=== PATIENT | female | born 1975 | race Caucasian/White ===

== ENCOUNTER 2017-06-25 15:49 | Emergency (ER) | payer BC, MEDICAID ==
[2017-06-25 16:13] VITALS: BP 195/102
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
[2017-06-25] MEDS ORDERED: HYDROmorphone 1 MG/ML Syringe IVPUSH ONE ×2 (16:21→19:32)
[2017-06-25] MEDS ORDERED: Metoclopramide 10 MG/2 ML SDV IVPUSH ONE (16:21)
[2017-06-25] MEDS ORDERED: Dextrose 5%-0.9% NaCl 1,000 ML IV SCH (16:30)
--- NOTE | 2017-06-25 17:15 | US ---
Limited abdominal ultrasound: Multiple real-time images of the upper right abdomen were obtained. Comparison: No previous study. Liver shows no focal parenchymal abnormality. Right kidney shows no hydronephrosis or mass and has a length of 10.0 cm. Gallbladder contains no gallstones. No gallbladder wall thickening or biliary duct dilatation is seen. Inferior vena cava is patent. Portal vein shows normal hepatopedal flow. Visualized pancreas appears within normal limits. Impression: 1. No abnormality is identified on right upper quadrant abdominal ultrasound. Diagnostic code #1
[2017-06-25] MEDS ORDERED: Ondansetron 4 MG/2 ML SDV IVPUSH ONE (19:32)
[2017-06-25] MEDS ORDERED: fentaNYL 100 MCG/2 ML SDV IVPUSH ONE (19:40)
[2017-06-25] MEDS ORDERED: Potassium Chloride 10 MEQ in Premix Bag 1 BAG IV SCH (19:45)
[2017-06-25] MEDS ORDERED: Iopamidol 612 MG/ML 150 ML Bottle IVPUSH ONE (20:12)
[2017-06-25] MEDS ORDERED: Diatrizoate Meglumine/Diatrizoate Sodium 37% 120 ML Bottle PO ONE (20:12)
[2017-06-25] MEDS ORDERED: Sodium Chloride 0.9% 10 ML Syringe FLUSH PRN (20:13)
--- NOTE | 2017-06-25 20:56 | CT ---
CT abdomen and pelvis Technique: Multiple axial sections were obtained from above the dome of the diaphragm inferiorly to the pubic symphysis. Intravenous and oral contrast was utilized. Delayed images were also obtained through the bladder. Comparison: Prior right upper quadrant abdominal ultrasound performed on the same day (4:31 PM). Findings: Visualized lung bases shows nothing acute. Liver shows no focal parenchymal abnormality. Spleen appears within normal limits. Adrenal glands show no nodule. Pancreas is within normal limits. Gallbladder contains no calcified gallstones. Kidneys show symmetric contrast enhancement without hydronephrosis or mass. Abdominal aorta shows no aneurysmal dilatation. No retroperitoneal adenopathy or mesenteric abnormalities are seen. No pelvic mass or adenopathy is seen. Delayed images shows contrast within the distal ureters. Small amount of free fluid is seen within the cul-de-sac which is most likely physiologic. Appendix is seen which appears normal in size. No bowel dilatation is seen. No inflammatory change is seen. Slight bowel wall thickening is seen within the stomach antrum which can be normal variant but also be seen with antritis. Bone window settings were reviewed which appear within normal limits for the patient's age. Impression: 1. Questionable findings within the stomach antrum as noted above. 2. Nothing acute is otherwise seen on CT study of the abdomen and pelvis. Diagnostic code #2
[2017-06-25] MEDS ORDERED: Dicyclomine 10 MG Cap PO ONE (21:22)
[2017-06-25] MEDS ORDERED: Famotidine 20 MG Tab PO ONE (21:22)
--- NOTE | 2017-06-26 06:39 | CR ---
Abdomen: Supine view of the abdomen was obtained. Comparison: No prior study. Bowel gas pattern is normal. No abnormal calcifications or soft tissue abnormality is seen. Bony structures are unremarkable. Impression: 1. Unremarkable supine abdominal x-ray. Diagnostic code #1
== END 2017-06-25 21:45 | disposition home or self-care (01) ==
LOC: JD.ED 15:49
DX: K29.70 Gastritis, unspecified, without bleeding (principal); K52.9 Noninfective gastroenteritis and colitis, unspecified; F17.210 Nicotine dependence, cigarettes, uncomplicated; Z88.5 Allergy status to narcotic agent; Z88.0 Allergy status to penicillin; Z88.2 Allergy status to sulfonamides; Z79.899 Other long term (current) drug therapy
CPT/HCPCS: 36415; 74018; 74177; 76705; 80053; 81001; 81025; 82009; 83605; 83690; 85025; 86140; 86677; 96361; 96365; 96366; 96375; 99285; A9270; J1170; J2405; J2765; J3010; J3480; J7042; J7050; Q9963; Q9967; 99284

== ENCOUNTER 2018-01-29 07:45 | Day surgery (SDC) | payer BC ==
[~2018-01-29 07:45] MED LIST: Dexamethasone 4 MG/ML SDV ONE; HYDROmorphone 0.5 MG/0.5 ML Syringe ONE; Ketorolac 30 MG/ML SDV ONE; Lactated Ringers 1,000 ML IV SCH; Lactated Ringers 1,000 ML ONE; Lidocaine 1% 4 ML ONE; Lidocaine 1%/Sod Bicarbonate in NS 8.4% 1 ML Syringe IDERM PRN; Midazolam 1 MG/ML 2 ML SDV ONE; Ondansetron 4 MG/2 ML SDV ONE; Propofol 200 MG/20 ML SDV ONE; Rocuronium 50 MG/5 ML Vial ONE; Sodium Chloride 0.9% 10 ML Syringe FLUSH PRN; ceFAZolin 1 GM Vial ONE; fentaNYL 250 MCG/5 ML SDV ONE
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
[2018-01-29] MEDS ORDERED: Bupivacaine 0.5% 30 ML SDV ONE (09:46)
[2018-01-29] MEDS ORDERED: HYDROmorphone 0.5 MG/0.5 ML Syringe IVPUSH PRN (10:33)
[2018-01-29] MEDS ORDERED: fentaNYL 100 MCG/2 ML SDV IVPUSH PRN (10:33)
[2018-01-29] MEDS ORDERED: diphenhydrAMINE 50 MG/ML SDV IVPUSH PRN (10:33)
[2018-01-29] MEDS ORDERED: Ondansetron 4 MG/2 ML SDV IVPUSH PRN (10:33)
[2018-01-29] MEDS ORDERED: ePHEDrine 50 MG/ML SDV IVPUSH PRN (10:33)
[2018-01-29] MEDS ORDERED: Albuterol 0.083% 2.5 MG/3 ML Neb Soln NEB PRN (10:33)
[2018-01-29] MEDS: Sodium Chloride 0.9% 50 ML SDV ONE ×2 (10:35→10:54)
[2018-01-29] MEDS: Lidocaine 1% with EPINEPHrine 1:100,000 20 ML MDV ONE ×2 (10:35→10:54)
[2018-01-29] MEDS ORDERED: Phenylephrine 1 MG in Sodium Chloride 0.9% 10 ML IV SCH (10:45)
[2018-01-29] MEDS ORDERED: HYDROmorphone 0.5 MG/0.5 ML Syringe ONE (10:46)
[2018-01-29] MEDS ORDERED: Lactated Ringers 1,000 ML ONE (11:13)
--- NOTE | 2018-01-29 11:41 | PCM.POSTAN ---
POST ANESTHESIA ASSESSMENT - MENTAL STATUS Mental Status: Alert - VITAL SIGNS Pulse Rate: 85 SaO2: 100 Resp Rate: 15 Blood Pressure: 165/91 Temperature: 36.1 C - RESPIRATORY Respiratory Status: Respiratory Rate WNL, Airway Patent, O2 Saturation Stable, Supplemental Oxygen - CARDIOVASCULAR CV Status: Pulse Rate WNL, Blood Pressure Stable - GASTROINTESTINAL GI Status: No Symptoms - POST OP HYDRATION Hydration Status: Adequate & Stable
--- NOTE | 2018-01-29 11:55 | PCM.OPNOTE ---
- General Post-Op/Procedure Note Date of Surgery/Procedure: 01/29/18 Operative Procedure(s): Transvaginal hysterectomy with bilateral salpingectomy Findings: Normal appearing cervix, uterus and bilateral fallopian tubes. Ovaries overall normal-appearing and limited portion of bowel that was visualized was normal in appearance. Pre Op Diagnosis: Abnormal uterine bleeding with irregular menstrual cycle and polymenorrhea and dysmenorrhea Post-Op Diagnosis: Same with endometrial polyp Anesthesia Technique: General ET Tube Primary Surgeon: Jeremias Kothari Anesthesia Provider: Juliann Grove Yield Analyst: Dimitri Taylor Yield Analyst: Lisset Mc Reason Yield Analyst Was Necessary: Patient's safety and reduction of morbidity and mortality Role of Yield Analyst: Retraction for visualization of tissue during surgery Fluid Replacement, Intraop: 2,000 Output, Urine Amount: 50 EBL in mLs: 200 Complications: None Condition: Good Free Text/Narrative:: Procedure in detail: The patient was seen in the preoperative holding area and risks, benefits, indications, and alternatives of the procedure were reviewed with the patient and she desired to proceed with a total vaginal hysterectomy. Consents were signed. The patient was given general anesthesia with an endotracheal tube that was placed without difficulty. The patient was placed in dorsal lithotomy position , prepped, and draped in normal sterile fashion. A weighted speculum was placed into the vagina and the anterior lip of the cervix was grasped with the single-tooth tenaculum. A second single-tooth tenaculum was used to grasp the entirety of the cervix. The cervix was injected circumferentially with 0.25% lidocaine with epinephrine. The cervix was circumferentially incised with a scalpel. The bladder was dissected off the pubovesical cervical fascia anteriorly with Esquivel scissors. The posterior cul-de-sac was entered sharply without difficulty using Esquivel scissors. A LigaSure vessel sealing device was placed over the uterosacral ligaments on the patient's left side. The anterior cul-de-sac was then able to be entered using sharp dissection with Esquivel scissors. These were cauterized and ligated with the LigaSure vessel sealing device. This was repeated on the patient's right side. Hemostasis was assured. The cardinal ligaments were then clamped on both sides with LigaSure vessel sealing device, cauterized and ligated with the device. The uterine arteries and broad ligament were then serially clamped with LigaSure vessel sealing device, cauterized and ligated with the device] on both sides. There was noted to be bleeding from the patient's left uterine artery and this was clamped with a Matthew clamp and sealed using cautery with the LigaSure vessel sealing device. There is an additional vessel that was bleeding on the left side and this was again clamped with a Matthew clamp and ligated using 0 Monocryl. Excellent hemostasis was visualized at this time. The cornua were clamped bilaterally with LigaSure vessel sealing device, cauterized and ligated , and the uterus delivered. These pedicles were suture ligated using LigaSure vessel sealing device with excellent hemostasis. The left fallopian tube was then visualized and grasped using a Priscilla clamp and excised using LigaSure vessel sealing device. This was repeated on the right side with grasping of the fallopian tube with a Priscilla clamp and excised using LigaSure vessel sealing device. The posterior vaginal cuff was closed with running locked sutures of 0-Monocryl. The vaginal cuff was closed with running locked stitches in a horizontal fashion with 0-Monocryl. All instruments were removed from the vagina. The patient was awoken and taken to the PACU for recovery in stable condition. Sponge, lap, needle, and instrument counts were correct x 2.
[2018-01-29] MEDS ORDERED: Acetaminophen/oxyCODONE 325-5 MG Tab PO PRN (12:00)
--- NOTE | 2018-01-29 13:15 | PCM48HPAN ---
Post Anesthesia Note - EVALUATION WITHIN 48HRS OF ANESTHETIC Vital Signs in Normal Range: Yes Patient Participated in Evaluation: Yes Respiratory Function Stable: Yes Airway Patent: Yes Cardiovascular Function Stable: Yes Hydration Status Stable: Yes Pain Control Satisfactory: Yes Nausea and Vomiting Control Satisfactory: Yes Mental Status Recovered: Yes
[2018-01-29 14:02] VITALS: BP 155/73
== END 2018-01-29 14:40 | disposition home or self-care (01) ==
LOC: JD.SDS 07:45
PROVIDERS: ATTEND Obstetrics & Gynecology
DX: D25.9 Leiomyoma of uterus, unspecified (principal); N87.9 Dysplasia of cervix uteri, unspecified; N84.0 Polyp of corpus uteri; N80.0 Endometriosis of uterus; N94.89 Other specified conditions associated with female genital organs and menstrual cycle; I10 Essential (primary) hypertension; F17.210 Nicotine dependence, cigarettes, uncomplicated; F41.9 Anxiety disorder, unspecified; F32.9 Major depressive disorder, single episode, unspecified; Z79.899 Other long term (current) drug therapy; Z88.2 Allergy status to sulfonamides; Z88.0 Allergy status to penicillin
CPT/HCPCS: 36415; 58262; 80053; 81003; 81025; 85025; 86850; 86900; 86901; A9270; J0690; J1100; J1170; J1885; J2250; J2405; J2704; J3010; J7120; J2001; J3490

== ENCOUNTER 2023-01-09 10:03 | Emergency (ER) | payer BC ==
[2023-01-09] MEDS ORDERED: Sodium Chloride 0.9% 10 ML Syringe FLUSH PRN (10:48)
[2023-01-09 11:01] LABS: BASOPHILS ABSOLUTE AUTO 0.04 K/mm3 (0.01-0.08); BASOPHILS PERCENT AUTO 0.4 % (0.1-1.2); EOSINOPHILS ABSOLUTE AUTO 0.06 K/mm3 (0.04-0.36); EOSINOPHILS PERCENT AUTO 0.6 (0.7-5.8); HEMATOCRIT 41.4 % (34.1-44.9); HEMOGLOBIN 14.4 gm/dl (11.2-15.7); IMMATURE GRAN ABSOLUTE AUTO 0.02 K/mm3 (0.00-0.10); IMMATURE GRAN PERCENT AUTO 0.2 % (<=1.0); LYMPHOCYTES ABSOLUTE AUTO 1.26 K/mm3 (1.18-3.74); LYMPHOCYTES PERCENT AUTO 12.9 % (19.3-51.7); MEAN CORPUSCULAR HEMOGLOBIN 30.6 pg (25.6-32.2); MEAN CORPUSCULAR HGB CONC 34.8 g/dl (32.2-35.5); MEAN CORPUSCULAR VOLUME 87.9 fl (79.4-94.8); MEAN PLATELET VOLUME 9.2 fl (9.4-12.3); MONOCYTES ABSOLUTE AUTO 0.82 K/mm3 (0.24-0.36); MONOCYTES PERCENT AUTO 8.4 % (4.7-12.5); NEUTROPHILS ABSOLUTE AUTO 7.56 K/mm3 (1.56-6.13); NEUTROPHILS PERCENT AUTO 77.5 % (34.0-71.1); PLATELET COUNT,PLT 381 K/mm3 (182-369); RED BLOOD CELL COUNT 4.71 M/mm3 (3.98-5.22); WHITE BLOOD CELL COUNT,WBC 9.76 K/mm3 (3.98-10.04)
[2023-01-09 11:22] LABS: INR 0.96; PROTHROMBIN TIME 10.3 SECONDS (9.7-12.0)
[2023-01-09] MEDS ORDERED: methylPREDNISolone Sodium Succinate 125 MG/2 ML SDV IVPUSH ONE (11:25)
[2023-01-09] MEDS ORDERED: Albuterol/Ipratropium 3.0-0.5 MG/3 ML Neb Soln NEB ONE (11:26)
[2023-01-09 11:29] LABS: D-DIMER QUANTITATIVE < 0.19 mg/L (0.19-0.50)
[2023-01-09] MEDS ORDERED: Sodium Chloride 0.9% 1,000 ML IV STA (11:40)
[2023-01-09 11:58] LABS: A/G RATIO 0.9 (1-2); ALANINE AMINOTRANSFERASE,ALT 16 U/L (14-59); ALBUMIN 3.6 g/dl (3.4-5.0); ALKALINE PHOSPHATASE 124 U/L (46-116); ANION GAP 16.1 (5-15); ASPARTATE AMNIOTRANSFERASE,AST 16 U/L (15-37); BILIRUBIN TOTAL 0.5 mg/dL (0.2-1.0); BLOOD UREA NITROGEN,BUN 3 mg/dL (7-18); CALCIUM 9.6 mg/dL (8.5-10.1); CARBON DIOXIDE,CO2 23 mEq/L (21-32); CHLORIDE,CL 94 mEq/L (98-107); EST CRCL DRUG DOSING (CG) 59.41 mL/min; ESTIMATED GFR 69 mL/min (>60); GLUCOSE RANDOM 91 mg/dL (70-99); MAGNESIUM 1.8 mg/dL (1.8-2.4); POTASSIUM,K 4.1 mEq/L (3.5-5.1); PROTEIN TOTAL,TP 7.7 g/dl (6.4-8.2); SODIUM,NA 129 mEq/L (136-145)
[2023-01-09 12:01] LABS: TROPONIN I HIGH SENSITIVITY < 4 pg/mL (<=51)
[2023-01-09] MEDS ORDERED: Ketorolac 30 MG/ML SDV IVPUSH ONE (13:14)
[2023-01-09] MEDS ORDERED: Codeine/Promethazine 10-6.25 MG/5 ML Syrup 5 ML UD Cup PO ONE (13:31)
[2023-01-09 13:48] LABS: APPEARANCE,URINE CLEAR (Clear); BILIRUBIN,URINE NEGATIVE (Negative); COLOR,URINE YELLOW (Yellow); GLUCOSE,URINE NEGATIVE (Negative); KETONES,URINE TRACE (Negative); LEUKOCYTE ESTERASE,URINE TRACE (Negative); NITRITE,URINE NEGATIVE (Negative); OCCULT BLOOD,URINE NEGATIVE (Negative); PROTEIN,URINE NEGATIVE (Negative); UROBILINOGEN,URINE 0.2 (0.2-1.0)
[2023-01-09 14:23] LABS: BACTERIA,URINE MANY /hpf (FEW); EPITHELIAL CELLS,URINE NOT SEEN /hpf (0-5); MUCUS,URINE NOT SEEN /hpf (FEW); RBC,URINE 0-5 /hpf (0-5); WBC,URINE 0-5 /hpf (0-5)
[2023-01-09 15:55] VITALS: BP 115/75; PULSE 70
== END 2023-01-09 15:10 | disposition home or self-care (01) ==
LOC: JD.ED 10:03
DX: J44.1 Chronic obstructive pulmonary disease with (acute) exacerbation (principal); B34.9 Viral infection, unspecified; F17.210 Nicotine dependence, cigarettes, uncomplicated; I10 Essential (primary) hypertension; Z20.822 Contact with and (suspected) exposure to COVID-19; Z79.899 Other long term (current) drug therapy; Z88.0 Allergy status to penicillin; Z88.2 Allergy status to sulfonamides
CPT/HCPCS: 36415; 71045; 80053; 81001; 83735; 84484; 85025; 85379; 85610; 87635; 87804; 87807; 93005; 94640; 96361; 96374; 96375; 99285; A9270; J1885; J2930; J3490; J7030; 93010; 99284; J7620-GY; U0002

== ENCOUNTER 2024-12-21 15:45 | Emergency (ER) | payer BC ==
[2024-12-21] MEDS: Ketorolac 30 MG/ML SDV IM ONE (16:49)
[2024-12-21 18:27] VITALS: BP 128/70; PULSE 72
== END 2024-12-21 18:00 | disposition home or self-care (01) ==
LOC: JD.ED 15:45
DX: S22.41XA Multiple fractures of ribs, right side, initial encounter for closed fracture (principal); I10 Essential (primary) hypertension; F17.200 Nicotine dependence, unspecified, uncomplicated; Z88.0 Allergy status to penicillin; Z88.2 Allergy status to sulfonamides; Z79.899 Other long term (current) drug therapy; W01.198A Fall on same level from slipping, tripping and stumbling with subsequent striking against other object, initial encounter
CPT/HCPCS: 71101; 96374; 99283; J1885

== ENCOUNTER 2025-01-20 07:07 | Emergency (ER) | payer BC ==
[2025-01-20 07:33] VITALS: BP 119/71; PULSE 81
[2025-01-20] MEDS: Acetaminophen/HYDROcodone 325-5 MG Tab PO ONE (08:18)
== END 2025-01-20 08:16 | disposition home or self-care (01) ==
LOC: JD.ED 07:07
DX: S01.01XA Laceration without foreign body of scalp, initial encounter (principal); I10 Essential (primary) hypertension; J44.9 Chronic obstructive pulmonary disease, unspecified; F17.210 Nicotine dependence, cigarettes, uncomplicated; Z88.0 Allergy status to penicillin; Z88.2 Allergy status to sulfonamides; Z79.899 Other long term (current) drug therapy; W01.198A Fall on same level from slipping, tripping and stumbling with subsequent striking against other object, initial encounter; Y93.89 Activity, other specified
CPT/HCPCS: 12002; 70450; 99283; A9270